=== PATIENT | male | born 1990 | race Caucasian/White ===

== ENCOUNTER 2016-06-28 06:32 | Observation (INO) | payer BC, OTHER ==
[~2016-06-28] VITALS: Ht 167.6 cm; Wt 85.1 kg
[2016-06-28] VITALS (10 sets, daily range): BP systolic 105–140; BP diastolic 68–93; PULSE 20–94; TEMP 36.7–37.1; O2SAT 96–99; Ht 167.6 cm; Wt 85.1 kg
[~2016-06-28 06:32] MED LIST: LACTATED RINGER'S 1000ML 1,000 ML IV SCH; diltiazem PO
[2016-06-28] MEDS ORDERED: PROPOFOL IV EMULSION 10 MG/ML 100 ML VIAL IV ONE (07:32)
[2016-06-28] MEDS ORDERED: FENTANYL CITRATE INJ 50 MCG/1 ML 2 ML VIAL ONE (07:46)
[2016-06-28] MEDS ORDERED: MIDAZOLAM HCL 1 MG/ML 2ML VIAL ONE ×2 (07:47→08:26)
[2016-06-28] MEDS ORDERED: PROPOFOL IV EMULSION 10 MG/ML 20 ML VIAL IV ONE (07:57)
[2016-06-28] MEDS ORDERED: LIDOCAINE HCL 2% 2 ML VIAL (20MG/ML) ONE (07:57)
--- NOTE | 2016-06-28 08:00 | History & Physical Bridge Note ---
H&P Re-Evaluation Bridge Note: I have examined the patient, reviewed the History & Physical and in the interval since the performance of the History & Physical I have noted the following changes of clinical significance: No changes noted
[2016-06-28] MEDS ORDERED: ADENOSINE IV SOLN 3 MG/ML 2 ML VIAL ONE (09:06)
[2016-06-28] MEDS ORDERED: MEPERIDINE HCL 25 MG/ML CARP IV PRN (09:30)
[2016-06-28] MEDS ORDERED: LABETALOL HCL IV 5 MG/ML 20ML IV PRN (09:30)
[2016-06-28] MEDS ORDERED: ONDANSETRON INJ 2 MG/ML 2 ML VIAL IV PRN (09:30)
[2016-06-28] MEDS ORDERED: EpHEDrine SULFATE INJ 50 MG/ML AMP IV PRN (09:30)
[2016-06-28] MEDS ORDERED: FENTANYL CITRATE INJ 50 MCG/1 ML 2 ML VIAL IV PRN (09:30)
[2016-06-28] MEDS ORDERED: ATROPINE SULFATE 0.1 MG/ML 5ML SYR IV PRN (09:30)
[2016-06-28] MEDS ORDERED: HYDROmorphone INJ 2 MG/ML SYR/VIAL IV PRN (09:30)
[2016-06-28] MEDS ORDERED: NALOXONE HCL 0.4 MG/1 ML VIAL/CARP IV PRN (09:30)
[2016-06-28] MEDS ORDERED: FLUMAZENIL 0.1 MG/1 ML 10 ML VIAL IV PRN (09:30)
[2016-06-28] MEDS ORDERED: PHENYLEPHRINE 100MCG/ML 5ML SYR IV PRN (09:30)
--- NOTE | 2016-06-28 10:25 | [facility] Post Operative Brief Note ---
Immediate Operative Summary Operative Date June 28, 2016. Pre-Operative Diagnosis svt Post-Operative Diagnosis avnrt Procedure(s) Performed eps, 3d mapping of c/s os and his bundle, slow pathyway modifcation Surgeon ciarra malik Clam Shovel Operator Surgeon(s) none Estimated Blood Loss <5cc Findings see official report Fluids (cc crystalloids) 400cc Specimens none Drains none Anesthesia 6mg versed, 100mcg fentanyl, 1200mg propofol Complication(s) None Disposition PCU
--- NOTE | 2016-06-28 10:27 | Discharge Instructions ---
Discharge Instructions Date of Service June 28, 2016. Admission Reason for Admission: W/Anes Svt Discharge Discharge Diagnosis / Problem: avnrt Discharge Goals Goal(s): Improve function Activity Recommendations Activity Limitations: as noted below (no heavy lifting or squating for 1 week) May Resume Sexual Activity: after one week Shower/Bathe: tomorrow Driving or Machine Use: resume 1 day after discharge . Instructions / Follow-Up Instructions / Follow-Up ACTIVITY RECOMMENDATIONS: It is common to feel weak and fatigue for a few days. * Do not drive or operate any motorized equipment for the next 1 day. * Limit stair usage (2 or 3 trips a day only) for the next 1 day. * Do not lift anything heavier than 10 pounds for the next 7 days. * Do not engage in vigorous exercise or any sports for the next five days. * You may shower the day after your procedure, but do not immerse the area for three days. Cleanse the site gently with soap and water. SPECIAL CARE INSTRUCTIONS: * You may replace the pressure dressing or band-aid the morning after the procedure. * After your procedure, it is normal to have a small bruise or small lump at the site. Examine your site daily for any change in the bruise or lump, redness, swelling, drainage or numbness. Notify your doctor if any change. BLEEDING: * If there is a small amount of bleeding at the site, lie down and apply firm pressure with a clean cloth for ten minutes. When the bleeding stops, lie quietly keeping the procedure limb straight for six hours. Notify your doctor as soon as possible. * If the bleeding does not stop after ten minutes or if there is a large amount of bleeding or spurting, call 911 immediately. Continue to lie down and hold firm pressure until help arrives. SKIN IRRITATION: * You may experience some redness and/or swelling in the area where radiation was administered. If any skin irritation occurs, please contact your family physician. FOLLOW UP VISIT: Keep any scheduled doctor appointments. Current Hospital Diet Patient's current hospital diet: Regular Diet Discharge Diet Recommended Diet: Regular Diet Procedures Procedures Performed: eps, 3d mapping of c/s os and his bundle, slow pathyway modifcation Pending Studies Studies pending at discharge: no Medical Emergencies . Who to Call and When: Medical Emergencies: If at any time you feel your situation is an emergency, please call 911 immediately. . Non-Emergent Contact Non-Emergency issues call your: Metal Cnc Operator . . "Provider Documentation" section prepared by Sherice Salguero. . VTE Core Measure Inpt VTE Proph given/why not?: Treatment not indicated
[2016-06-28] MEDS ORDERED: ACETAMINOPHEN 325 MG TAB PO PRN (10:30)
--- NOTE | 2016-06-28 10:30 | Discharge Summary ---
Discharge Summary Date of Service June 28, 2016. Discharge Summary Admission Date: 06/28/2016 Discharge Date: June 29, 2016 Discharge Disposition: Home Principal Diagnosis: avnrt s/p slow pathway modification Secondary Diagnoses/Problems: h/o ASD repair as a child partial anomalous pulmonary venous connecton Procedures: EPS, 3D mapping of coronary sinus os and his bundle, Radiofrequency ablation for slow pathway modification Medication Reconciliation Discontinued Medications: [diltiazem] () 30 MG PO QAM PT WILL FOLLOW INSTRUCTIONS BY DR SOLIS Admission Information Physical Exam (per Admitting): aaox3, nad supple, no jvd nrl s1/s2, no murmur cta b/l no w/r/r soft no edema no focal deficits Hospital Course Pt was admitted for elective EPS with possible ablation due to SVT. He underwent EPS with slow pathway modification due to typical AVNRT without any complications. Monitored overnight and discharged home follow day. Total time spent on discharge = This includes examination of the patient, discharge planning, medication reconciliation, and communication with other providers. Discharge Instructions ACTIVITY RECOMMENDATIONS: It is common to feel weak and fatigue for a few days. * Do not drive or operate any motorized equipment for the next 1 day. * Limit stair usage (2 or 3 trips a day only) for the next 1 day. * Do not lift anything heavier than 10 pounds for the next 7 days. * Do not engage in vigorous exercise or any sports for the next five days. * You may shower the day after your procedure, but do not immerse the area for three days. Cleanse the site gently with soap and water. SPECIAL CARE INSTRUCTIONS: * You may replace the pressure dressing or band-aid the morning after the procedure. * After your procedure, it is normal to have a small bruise or small lump at the site. Examine your site daily for any change in the bruise or lump, redness, swelling, drainage or numbness. Notify your doctor if any change. BLEEDING: * If there is a small amount of bleeding at the site, lie down and apply firm pressure with a clean cloth for ten minutes. When the bleeding stops, lie quietly keeping the procedure limb straight for six hours. Notify your doctor as soon as possible. * If the bleeding does not stop after ten minutes or if there is a large amount of bleeding or spurting, call 911 immediately. Continue to lie down and hold firm pressure until help arrives. SKIN IRRITATION: * You may experience some redness and/or swelling in the area where radiation was administered. If any skin irritation occurs, please contact your family physician. FOLLOW UP VISIT: Keep any scheduled doctor appointments.
--- NOTE | 2016-06-28 11:04 | Anesthesiology Progress Note ---
Anesthesia Post Op Note Date & Time June 28, 2016 at 11:04 Vital Signs Pain Intensity: 0 Vital Signs Past 12 Hours Date Time Temp Pulse Resp B/P Pulse Ox O2 Delivery O2 Flow Rate FiO2 06/28/16 10:50 84 16 105/74 95 Nasal Cannula 2 06/28/16 10:40 85 16 110/74 95 Nasal Cannula 2 06/28/16 10:30 72 16 104/56 95 Nasal Cannula 4 06/28/16 06:57 36.7 85 18 140/89 98 Room Air Notes Mental Status: alert / awake / arousable, participated in evaluation Pt Amnestic to Procedure: Yes Nausea / Vomiting: adequately controlled Pain: adequately controlled Airway Patency, RR, SpO2: stable & adequate BP & HR: stable & adequate Hydration State: stable & adequate Anesthetic Complications: no major complications apparent
[2016-06-28] MEDS ORDERED: IV FLUIDS COMPLETED PRN (12:00)
--- NOTE | 2016-06-28 15:18 | OPERATIVE REPORT ---
DATE OF OPERATION: 06/28/2016 PREOPERATIVE DIAGNOSIS: Supraventricular tachycardia. POSTOPERATIVE DIAGNOSIS: Atrioventricular misael reentrant tachycardia. PROCEDURE: Electrophysiology study, 3D mapping of the coronary sinus os and the His bundle, along with radiofrequency ablation for slow pathway modification. SURGEON: Dr. Sherice Salguero. ASSISTANTS: None. ANESTHESIA: Monitored anesthetic care administered under anesthesiology supervision, a total of 6 mg of Versed, 100 mcg of fentanyl, 1200 mg of propofol. Again, this was under anesthesia, they do the billing. SPECIMENS: None. BLOOD LOSS: Less than 5 mL. CONDITION: Stable. URINE OUTPUT: Not applicable. SPECIMENS: None. FINDINGS: See below. DRAINS: None. IV FLUIDS: 400 mL. INDICATIONS: This is a 26-year-old gentleman who has a past medical history for ASD in which he is status post ASD repair as a child, partial anomalous pulmonary venous connection and SVT symptomatic at a rate of 200. Due to recurrent SVT he was recommended electrophysiology study with possible ablation. CONSENT: Consent was obtained prior to the patient going into the electrophysiology lab. The patient was informed of risks, benefits, alternatives to the procedure. Risks include but not limited to sudden cardiac , cardiac arrhythmias, cerebrovascular accident, myocardial infarction, injury to the blood vessels, chamber of the heart, the valves or the ambler electrical system where he would need a permanent pacemaker, bleeding or infection. The patient understood these risks and agreed to the procedure as planned. Informed consent was obtained. DESCRIPTION OF THE PROCEDURE: The patient was brought into the electrophysiology lab in a fasting state. He was connected to continuous court recording monitor. A timeout was performed to ensure patient's identity and procedure correctly. The patient was prepped and draped over the bilateral groins in normal surgical standard fashion. Monitored anesthetic care was given throughout the procedure for patient's comfort level via anesthesiology. [place] precautions were maintained throughout the procedure. Ten mL of 1% lidocaine were given in the bilateral groins for local anesthesia. Then using a modified Seldinger technique, venous access was obtained in the following manner. The right femoral vein had a 6-[place] sheath followed by a quadripolar Gatito catheter positioned in the high rate atrium. Eventually it had a SRO0 sheath followed by the 4 mm DF curve Musicplayrense ablation catheter. The left femoral vein had 6-[place] sheath followed by a G[place]ito quadripolar catheter positioned into the right ventricular apex. A 7-[place] sheath followed by a quadripolar Hisser catheter positioned over the His bundle. A 7-[place] sheath followed by a Biosense DF curve Decapolar coronary sinus catheter positioned out into the coronary sinus. Once the catheters were all in place electrophysiology study was performed with the following findings. DE baseline intervals, DE interval 148 milliseconds, QRS 70 milliseconds, QT 358 milliseconds. Sinus cycle length 770 milliseconds, AH 82 milliseconds, HV 46 milliseconds. With atrial burst pacing define AV Wenckebach 330 milliseconds. I initiated tachycardia with an AH jump. Tachycardia cycle length was 342 milliseconds. The VA time from the right ventricular apex to the high rate atrium was 68 milliseconds. There was concentric retrograde VA atrial conduction and with ventricular pacing I had a VAV response. Ultimately I was able to break the tachycardia by overdrive pacing from the atrium and the ventricle at the same time. Once the tachycardia was broken I then did atrial extrastimuli from the high rate atrium. A fast pathway ERP was found to be 600/390 and 500/390. The AV node ERP was 600/270 and the atrial ERP was 600/250. AV nodes 500/260 and the atrial was 500/240. I did induce tachycardia again at 500/300, tachycardia cycle length was 344 milliseconds. The VA time was 58 milliseconds. It was retrograde atrial conduction and this did break on its own. With right ventricular extra stimuli, the RV ERP was found to be 600/240 and 400/220. With the basis of the tachycardia cycle length and our maneuvers, we diagnosed typical AVNRT and set up to do an AV slow pathway modification. I used the modified Seldinger technique again to get venous access in the right femoral vein and placed an SRO sheath up into the heart followed then by the 4 mm Biosense DF curve ablation catheter. While I was putting the ablation catheter up into the heart and 3D mapping the coronary sinus os I did notice there were some mechanical junctional rhythms. In addition while I was then doing the His bundle cloud there was furthermore junctional and at times complete heart block and first degree AV block had developed. This was all before I did any ablation. After I had 3D mapped the His bundle and the coronary sinus os I then set up to do a slow pathway modification by placing the ablation catheter on the low septum and I gave a few ortiz, longest was probably about 5-7 seconds as I quickly gotten a few junctionals and I did notice a few beats that were nonconducted back to atrium. Given the increased risk of complete heart block that did not do any further ablation and radiofrequency ablations and a post-ablation electrophysiology study the following findings: Baseline intervals, DE interval 262 milliseconds, again a first degree AV block now developed QRS 84 milliseconds, QT 346 milliseconds. Sinus cycle length 774 milliseconds at one seem to be. A split his catheter AA to a first his interval 74, the second 192 milliseconds, the H1, His 1 to V was 156 milliseconds, but the H2 to V was 50 milliseconds. AV Wenckebach post-ablation was found to be 430 milliseconds. The AV node ERP was found to be 600/340 and 500/350. Atrial ERP was found to be 600/240 and 500/260. The right ventricular ERP was found to be 400/220. I gave up to triple atrial extrastimuli from the high rate atrium and did not induce any tachycardia nor did I have any single or dual echo beats. The ablation was successful. All the catheters were removed from the body and the sheaths were pulled using manual compression to establish hemostasis. IMPRESSIONS: 1. Typical atrioventricular misael reentrant tachycardia status post slow pathway modification successful. 2. Dual arteriovenous misael pathology. 3. First degree AV block. 4. Intermittent mechanical complete heart block when manipulating the catheters. PLAN: Monitor patient overnight, 12-lead ECG. He is not to do any heavy lifting or squatting for a week. Should follow up in our office in 1 months' time. He can stop his Cardizem. I attest to the content of the Intraoperative Record and any orders documented therein. Any exceptions are noted below. JUAN DIEGO
[2016-06-29 03:49] VITALS: BP 118/72; PULSE 79; TEMP 36.9; O2SAT 98
[2016-06-29 07:52] VITALS: BP 143/90; PULSE 79; TEMP 36.5; O2SAT 95
--- NOTE | 2016-06-29 08:07 | Anesthesiology Progress Note ---
Anesthesia Post Op Note Date & Time June 29, 2016 at 08:06 Vital Signs Pain Intensity: 0.0 Vital Signs Past 12 Hours Date Time Temp Pulse Resp B/P Pulse Ox O2 Delivery O2 Flow Rate FiO2 06/29/16 07:52 36.5 79 20 143/90 95 Room Air 06/29/16 07:44 Room Air 06/29/16 04:00 Room Air 06/29/16 03:49 36.9 79 17 118/72 98 Room Air 06/28/16 23:59 Room Air 06/28/16 23:55 36.9 90 17 127/76 97 Room Air Notes Mental Status: alert / awake / arousable, participated in evaluation Pt Amnestic to Procedure: Yes Nausea / Vomiting: adequately controlled Pain: adequately controlled Airway Patency, RR, SpO2: stable & adequate BP & HR: stable & adequate Hydration State: stable & adequate Anesthetic Complications: no major complications apparent
[2016-06-29 09:01] VITALS: BP 143/90; PULSE 79; TEMP 36.5; O2SAT 95
--- NOTE | 2016-06-29 10:04 | CARDIOLOGY PROGRESS NOTE ---
DATE: 06/29/2016 DATE: 06/29/2016. The patient seen and examined. Chart, medications, telemetry reviewed. SUBJECTIVE: The patient feels well this morning. Notes no adverse effects at all, feels well, is ambulatory in room. Notes no chest pain, shortness of breath, dizziness, lightheadedness, syncope or near syncope. Notes no arrhythmias. OBJECTIVE: VITAL SIGNS: Heart rate is 79, blood pressure is mildly elevated at 143/90, O2 saturations 95% on room air. HEAD, EYES, EARS, NOSE, AND THROAT EXAMINATION: Normocephalic, atraumatic. Nares without discharge. Throat was clear. NECK: Supple without thyromegaly, lymphadenopathy, JVD or bruit. LUNGS: Clear to auscultation. CARDIOVASCULAR EXAMINATION: Regular with normal S1, S2. There is no murmur, gallop or rub. ABDOMEN: Soft, nontender. Right and left groin puncture sites are without hematoma or bleeding. There are intact distal pulses. There is no palpable cord or Georges signs. IMPRESSION: Clinically stable. The patient is status post electrophysiology procedure. PLAN: For discharge as already arranged. Outpatient followup with Dr. Salguero 1 months' time.
== END 2016-06-29 11:07 | disposition home or self-care (01) ==
LOC: ENRESERVTM → ENRESERVDT → C.EP 06:32 → C.2E 10:22
PROVIDERS: ADMIT Internal Medicine; ATTEND Internal Medicine
DX: I47.1 Supraventricular tachycardia (principal); Q26.3 Partial anomalous pulmonary venous connection; Q21.1 Atrial septal defect; Z87.74 Personal history of (corrected) congenital malformations of heart and circulatory system; Z98.890 Other specified postprocedural states; Z88.0 Allergy status to penicillin; Z90.89 Acquired absence of other organs; E66.9 Obesity, unspecified; Z68.30 Body mass index [BMI] 30.0-30.9, adult; Z83.3 Family history of diabetes mellitus